=== PATIENT | female | born 1965 | race Caucasian/White ===

== ENCOUNTER → 2016-09-29 | Outpatient (CLI) | payer OTHER ==
[~2016-09-29] MED LIST: DITROPAN XL 5MG5 M1 PO; GLUCOPHAGE1000 MG PO; MOBIC15 MG PO; NEXIUM 40MG40 MG PO; PRINIVIL40 MG PO; PROVERA5 MG PO; ULTRAM 50MG TAB50 MG PO; ZANAFLEX 4MG TAB4 MG PO
== END ==
LOC: COL.RAD 06:30
DX: K59.09 Other constipation (principal)

== ENCOUNTER → 2016-10-04 | Outpatient (CLI) | payer OTHER | LOC: COL.RAD 06:30 | DX: K59.09 Other constipation (principal) ==

== ENCOUNTER → 2017-10-23 | Outpatient (CLI) | payer OTHER | LOC: COL.RAD 08:22 | DX: K30 Functional dyspepsia (principal) | CPT/HCPCS: A9541 ==